=== PATIENT | male | born 1955 | race Caucasian/White ===

== ENCOUNTER 2020-02-11 10:52 | Outpatient (CLI) | payer MEDICARE, BC ==
--- NOTE | 2020-02-11 13:13 | RAD ---
LUMBAR SPINE 3 VIEWS: Date: 02/11/2020 INDICATION: History of low back pain. COMPARISON: None. FINDINGS: Spinal alignment is preserved. There is mild to moderate multilevel disc degenerative disease most pr ominent at L3-4 through L5-S1. The facet joints appear within normal limits. There is mild infrarenal aortic dilatation measuring 3.2 cm. There is prominent vascular calcification involving the abdomino pelvic vasculature. No acute fracture is evident. SI joints appear within normal limits. IMPRESSION: 1. Moderate lumbar spondylosis. 2. Infrarenal abdominal aortic aneurysm measuring 3.2 cm. POS: BH
== END 2020-02-11 10:53 | disposition home or self-care (01) ==
LOC: BICRAD 10:52
PROVIDERS: ATTEND Specialist
DX: M54.5 Low back pain (principal); M47.816 Spondylosis without myelopathy or radiculopathy, lumbar region; I71.4 Abdominal aortic aneurysm, without rupture
CPT/HCPCS: 72100

== ENCOUNTER 2020-03-16 13:42 | Outpatient (CLI) | payer MEDICARE, BC ==
--- NOTE | 2020-03-16 14:54 | MRI ---
MRI Lumbar Spine Noncontrast: HISTORY: Low back pain for 6 months. COMPARISON: None FINDINGS: The visualized retroperitoneal structures demonstrate a normal appearance. Conus medullaris is normal in morphology and terminates at the L1 level. Paravertebral soft tissues have a normal appearance. L1-2: Mild disc osteophyte complex without significant central canal or neural foraminal narrowing. L2-3: Mild disc osteophyte complex resulting in slight effacement of ventral aspect of the thecal sac . No significant neural foraminal narrowing is present. L3-4: Mild disc osteophyte complex. This results in slight flattening of the anterior aspect of the t hecal sac. Mild left-sided neural foraminal narrowing is present, but the right neural foramen is patent. L4-5: Loss of intervertebral disc height. There is a mild endplate degenerative changes along the pos terior aspect of the vertebral bodies at this level. Broad-based disc osteophyte complex is present with mild ligamentous thickening eccentrically greater on the right. Findings result in mild narrowin g of the central spinal canal. Mild/moderate bilateral neural foraminal narrowing is present, and there is a fat plane surrounding each nerve root within the neural foramen. Mild facet degenerative c hanges are present. L5-S1: Mild disc osteophyte complex is present with small central disc protrusion. This results in ve ry slight mass effect on the anterior aspect of the thecal sac. Facet degenerative changes are present at this level. Mild to moderate bilateral neural foraminal narrowing is present. Small subcen timeter increased T2-weighted signal intensity structure is seen posterior to the facet joints likely due to small synovial cyst. IMPRESSION: Degenerative changes in the lumbar spine without high-grade central canal or neural foraminal narrowi ng. Greatest degrees of neural foraminal narrowing are seen at the L4-5 and L5-S1 levels with mild to moderate degrees of neural foraminal narrowing.
== END 2020-03-16 13:43 | disposition home or self-care (01) ==
LOC: BICMRI 13:42
PROVIDERS: ATTEND Specialist
DX: M54.5 Low back pain (principal); M47.816 Spondylosis without myelopathy or radiculopathy, lumbar region; M48.061 Spinal stenosis, lumbar region without neurogenic claudication; M48.07 Spinal stenosis, lumbosacral region
CPT/HCPCS: 72148

== ENCOUNTER 2022-01-23 18:40 | Inpatient (IN) | payer MEDICARE, BC ==
[~2022-01-23 18:40] MED LIST: Iopamidol-370 76% 500 ML 1 ML ONE
[2022-01-23 19:13] LABS: #Eosinphils 0.6 thou/uL (0.0-0.7); #Lymphocytes 1.5 thou/uL (1.20-3.40); #Monocytes 0.7 thou/uL (0.11-0.59); #Neutrophils 8.2 thou/uL (1.40-6.50); %Basophils 0.3 % (0.0-1.0); %Eosinophils 5.1 % (0.0-10.0); %Lymphocytes 13.9 % (21.0-51.0); %Monocytes 6.2 % (0.0-10.0); %Neutrophils 74.4 % (42.0-75.0); Mean Corpuscular HGB CONC 32.7 g/dL (32.0-36.0); Mean Platelet Volume 7.2 fL (7.4-10.4); Platelet Count 169 thou/uL (130-400); RBC Distribution Width 11.8 % (11.5-14.5); Red Blood Cell (RBC) Count 4.25 mill/uL (4.70-6.10)
[2022-01-23 19:36] LABS: ALT (SGPT) 23 U/L (8-55); AST (SGOT) 18 U/L (5-34); Albumin 4.2 g/dL (3.4-4.8); Alkaline Phosphatase 74 U/L (40-110); Anion Gap 13 mmol/L (10-20); BUN (Urea Nitrogen) 11 mg/dL (8.4-25.7); Bilirubin, Total 0.5 mg/dL (0.2-1.2); Calc. Creatinine Clearance 0 mL/min (70-130); Calcium 8.9 mg/dL (7.8-10.44); Carbon Dioxide 25 mmol/L (23-31); Chloride 100 mmol/L (98-107); Estimated GFR 100; Globulin 3.1 g/dL (2.4-3.5); Glucose 95 mg/dL (80-115); Lipase 25 U/L (8-78); Potassium 4.1 mmol/L (3.5-5.1); Protein, Total 7.3 g/dL (5.8-8.1); Sodium 134 mmol/L (136-145)
[2022-01-23] MEDS ORDERED: Morphine 4 MG/ML VIAL ONE ×2 (19:45→21:56)
[2022-01-23] MEDS ORDERED: Ondansetron PF 4 MG/2 ML Vial ONE (19:45)
[2022-01-23] MEDS ORDERED: Ketorolac Tromethamine 30 MG/ML VIAL ONE (19:46)
[2022-01-23] MEDS ORDERED: Aspirin 325 MG TAB ONE (19:46)
[2022-01-23 19:54] LABS: INR-International Normal Ratio 1.2; PTT 32.3 sec (22.9-36.1); Prothrombin Time 15.1 sec (12.0-14.7)
[2022-01-23] MEDS ORDERED: Nitroglycerin 2% Ointment 1 INCH/1 GM Packet ONE (20:46)
[2022-01-23 22:09] LABS: CKMB 0.8 ng/mL (0-6.6); Troponin I Less than 0.010 ng/mL (< 0.028)
[2022-01-24] MEDS: Ibuprofen 600 MG TAB PO SCH ×4 (00:40→18:24)
[2022-01-24] MEDS ORDERED: Sodium Chloride 0.9% 500 ML IVPB SCH (01:00)
[2022-01-24] MEDS: Sodium Chloride 0.9% 1,000 ML IV SCH ×3 (02:23→18:25)
[2022-01-24] MEDS ORDERED: Sodium Chloride 0.9% 1,000 ML IV SCH (06:15)
[2022-01-24 06:36] LABS: #Eosinphils 0.2 thou/uL (0.0-0.7); #Lymphocytes 1.4 thou/uL (1.20-3.40); #Monocytes 0.8 thou/uL (0.11-0.59); #Neutrophils 7.1 thou/uL (1.40-6.50); %Basophils 0.1 % (0.0-1.0); %Eosinophils 2.4 % (0.0-10.0); %Lymphocytes 14.5 % (21.0-51.0); %Monocytes 8.2 % (0.0-10.0); %Neutrophils 74.9 % (42.0-75.0); Hemoglobin 12.1 g/dL (14.0-18.0); Mean Corpuscular HGB CONC 33.4 g/dL (32.0-36.0); Mean Platelet Volume 8.1 fL (7.4-10.4); Platelet Count 132 thou/uL (130-400); RBC Distribution Width 11.9 % (11.5-14.5); Red Blood Cell (RBC) Count 3.56 mill/uL (4.70-6.10); White Blood Cell (WBC) Count 9.5 thou/uL (4.8-10.8)
[2022-01-24 06:49] LABS: Anion Gap 10 mmol/L (10-20); BUN (Urea Nitrogen) 16 mg/dL (8.4-25.7); CRP (Inflammatory) 4.86 mg/dL (= or < 0.5); Calc. Creatinine Clearance 0 mL/min (70-130); Calcium 8.2 mg/dL (7.8-10.44); Carbon Dioxide 24 mmol/L (23-31); Chloride 105 mmol/L (98-107); Estimated GFR 101; Glucose 109 mg/dL (80-115); Potassium 3.7 mmol/L (3.5-5.1); Sodium 135 mmol/L (136-145)
[2022-01-24] MEDS: cefTRIAXone\\ROCEPHIN 2 GM in Sodium Chloride 0.9% 100 ML IVPB SCH (08:23)
[2022-01-24] MEDS: methylPREDNISolone Sod Succ/PF 125 MG/2 ML VIAL IVP SCH ×2 (08:24→14:33)
[2022-01-24] MEDS: Midodrine HCl 5 MG TAB PO SCH ×3 (08:25→20:49)
[2022-01-24] MEDS: Colchicine 0.6 MG TAB PO SCH ×2 (08:25→20:58)
[2022-01-24] MEDS ORDERED: FLU VACC QS2022-23(65YR UP)/PF 240 MCG/0.7 ML SYRINGE IM ONE (09:00)
[2022-01-24] MEDS ORDERED: Acetaminophen/Codeine 30-300mg Tablet PO PRN (10:19)
[2022-01-24] MEDS: Nicotine 21 MG PATCH TD SCH (10:54)
[2022-01-24 12:47] VITALS: BMI 27.0
[2022-01-24] MEDS: Budesonide 0.5 MG/2 ML NEB NEB SCH (18:48)
[2022-01-24] MEDS ORDERED: Ibuprofen 800 MG TAB PO SCH (19:15)
[2022-01-24] MEDS ORDERED: Diltiazem HCl 125 MG, Admixture Fee 1 EACH in Sodium Chloride 0.9% 100 ML IVPB SCH (20:45)
[2022-01-24] MEDS ORDERED: Digoxin 0.5 MG/2 ML AMP SLOW IVP SCH (22:15)
[2022-01-25] MEDS: Ibuprofen 800 MG TAB PO SCH ×3 (02:20→17:47)
[2022-01-25] MEDS: Sodium Chloride 0.9% 1,000 ML IV SCH ×2 (02:21→10:10)
[2022-01-25] MEDS: Budesonide 0.5 MG/2 ML NEB NEB SCH ×2 (07:41→18:45)
[2022-01-25] MEDS ORDERED: Enoxaparin Sodium 40 MG/0.4 ML SYRINGE SC SCH (09:00)
[2022-01-25] MEDS: cefTRIAXone\\ROCEPHIN 2 GM in Sodium Chloride 0.9% 100 ML IVPB SCH (09:18)
[2022-01-25] MEDS: Midodrine HCl 5 MG TAB PO SCH ×3 (09:19→21:00)
[2022-01-25] MEDS: Nicotine 21 MG PATCH TD SCH (09:20)
[2022-01-25] MEDS: Colchicine 0.6 MG TAB PO SCH ×2 (09:20→21:00)
[2022-01-25] MEDS: Enoxaparin Sodium 100 MG/ML SYRINGE SC SCH ×2 (09:21→21:00)
[2022-01-26] MEDS: Ibuprofen 800 MG TAB PO SCH (02:54)
[2022-01-26] MEDS: Budesonide 0.5 MG/2 ML NEB NEB SCH (07:26)
[2022-01-26 07:41] VITALS: BP 106/61; TEMP 97.3
[2022-01-26] MEDS: cefTRIAXone\\ROCEPHIN 2 GM in Sodium Chloride 0.9% 100 ML IVPB SCH (08:45)
[2022-01-26] MEDS: Enoxaparin Sodium 100 MG/ML SYRINGE SC SCH (08:48)
[2022-01-26] MEDS: Midodrine HCl 5 MG TAB PO SCH (08:48)
[2022-01-26] MEDS: Nicotine 21 MG PATCH TD SCH (08:49)
[2022-01-26] MEDS: Colchicine 0.6 MG TAB PO SCH (08:49)
== END 2022-01-26 09:37 | disposition home or self-care (01) | DRG 316 ==
LOC: ERS 18:40 → 2SW 21:01
PROVIDERS: ADMIT Specialist; ATTEND Specialist
DX: I30.9 Acute pericarditis, unspecified (principal); J44.9 Chronic obstructive pulmonary disease, unspecified; Z20.822 Contact with and (suspected) exposure to COVID-19; E78.5 Hyperlipidemia, unspecified; F17.210 Nicotine dependence, cigarettes, uncomplicated; I25.10 Atherosclerotic heart disease of native coronary artery without angina pectoris; I48.0 Paroxysmal atrial fibrillation; I95.9 Hypotension, unspecified; Z79.82 Long term (current) use of aspirin; Z90.49 Acquired absence of other specified parts of digestive tract; Z79.51 Long term (current) use of inhaled steroids; Z79.899 Other long term (current) drug therapy
CPT/HCPCS: 36415; 71045; 71275; 74174; 80048; 80053; 82533; 82550; 82553; 83690; 84443; 84484; 85025; 85379; 85610; 85652; 85730; 86140; 87040; 93005; 93010; 93306; 94640; 96361; 96374; 96375; 96376; J0696; J1160; J1650; J1885; J2270; J2405; J2930; J3490; J7030; J7050; J7620; J7626; Q9967; U0003; U0005

== ENCOUNTER 2022-04-18 13:21 | Outpatient (CLI) | payer MEDICARE, BC | END 2022-04-18 13:22 | disposition home or self-care (01) | LOC: RAD 13:21 | PROVIDERS: ATTEND Thoracic Surgery (Cardiothoracic Vascular Surgery) | DX: I31.4 Cardiac tamponade (principal) | CPT/HCPCS: 71046 ==

== ENCOUNTER 2022-11-29 12:52 | Outpatient (CLI) | payer MEDICARE, BC ==
[~2022-11-29 12:52] MED LIST changes: -Iopamidol-370 76% 500 ML 1 ML ONE; +Iopamidol-370 76% 500 ML MDV (1 ML CHARGE) ONE
== END 2022-11-29 12:53 | disposition home or self-care (01) ==
LOC: BICCT 12:52
PROVIDERS: ATTEND Specialist
DX: R42 Dizziness and giddiness (principal)
CPT/HCPCS: 70470; 82565; Q9967

== ENCOUNTER 2024-05-16 11:56 | Outpatient (CLI) | payer MEDICARE, BC | END 2024-05-16 11:57 | disposition home or self-care (01) | LOC: BICRAD 11:56 | PROVIDERS: ATTEND Specialist | DX: M54.50 Low back pain, unspecified (principal) | CPT/HCPCS: 72100 ==

== ENCOUNTER 2024-05-27 10:36 | Outpatient (CLI) | payer MEDICARE, BC | END 2024-05-27 10:37 | disposition home or self-care (01) | LOC: BICMRI 10:36 | PROVIDERS: ATTEND Specialist | DX: M54.50 Low back pain, unspecified (principal); M48.061 Spinal stenosis, lumbar region without neurogenic claudication; M48.07 Spinal stenosis, lumbosacral region; G54.1 Lumbosacral plexus disorders | CPT/HCPCS: 72148 ==